=== PATIENT | female | born 1970 ===

== ENCOUNTER 2018-12-28 05:50 | Day surgery (SDC) | payer BC ==
[2018-12-26 09:00] LABS: HEMATOCRIT 41.4 % (36.0-48.0); HEMOGLOBIN 13.3 g/dL (12-16); MCH 24.7 pg (26.0-34.0); MCHC 32.1 g/dL (31.0-37.0); MEAN PLATELET VOLUME 9.6 fL (7.4-10.4); PLATELET COUNT 242 10x3/uL (130-400); RBC 5.38 10x6/uL (4.00-5.40); WBC 6.8 10x3/uL (4.8-10.8)
[2018-12-26 09:09] LABS: CALC OSMOLALITY 281 mosm/kg (275-300); CARBON DIOXIDE 29.2 mmol/L (21.0-32.0); CHLORIDE - SERUM 104 mmol/L (98-107); CREATININE - SERUM 0.4 mg/dL (0.6-1.3); GLUCOSE 98 mg/dL (74-106); POTASSIUM - SERUM 3.3 mmol/L (3.5-5.1); SODIUM 141 mmol/L (136-145); UREA NITROGEN 15 mg/dL (7-18); eGFR NON AFRICAN AMERICAN > 90 mL/min (90-120)
[~2018-12-28 05:50] MED LIST: BAYER CHEWABLE81 MG PO; EZFE 200200 MG PO; LIPITOR40 MG PO; NORVASC5 MG PO; TOPROL XL25 MG PO
[2018-12-28 06:57] VITALS: BP 133/88; BMI 21.5
[2018-12-28] MEDS ORDERED: DURICEF500 MG PO (11:11)
[2018-12-28] MEDS ORDERED: PERCOCET 5-3251 TAB PO (11:11)
--- NOTE | 2018-12-28 14:45 | OP ---
PATIENT NAME: CARIDAD KUMAR MEDICAL RECORD: [id number] :70 LOCATION:[facility] ADMISSION DATE: SURGEON: PARISH SMART DO DATE OF OPERATION: 12/28/2018 PROCEDURE PERFORMED: Left thumb CMC arthroplasty. PREOPERATIVE DIAGNOSIS: Left thumb CMC instability and arthritis. POSTOPERATIVE DIAGNOSIS: Left thumb CMC instability and arthritis. INDICATIONS: Ms. Kumar is a 48-year-old female who has had a left thumb CMC instability and arthritis for quite some time. She had the right thumb fixed at another state and this one had been bothering her. She lost all pinch artificial fly tier and was tired of dealing with that and the instability and she wanted something done. I informed her that we do a suspension arthroplasty of the thumb CMC joint. She is aware of the risks of damage to the radial sensory nerve and need for further surgery, infection and bleeding and she was okay with that and signed the consent. SURGEON: Parish Smart DO DESCRIPTION OF PROCEDURE: The patient was taken to the operative suite after given a block by anesthesia, given 2 grams Ancef preoperatively. The left upper extremity was prepped and draped in a sterile fashion. Timeout was performed. Everyone was in agreement as to the correct side, site, and patient and procedure. The left upper extremity was then exsanguinated with an Esmarch and the tourniquet was inflated to 250 mmHg and was up for 38 minutes. The incision was then marked out over the CMC joint of the thumb on the radial border. Careful dissection was made down then to the CMC joint and opening it up exposing the proximal aspect of the metacarpal of the thumb. Then, an incision was made over the second metacarpal on the dorsal surface. Dissection was made down to the ulnar side of it and a pin was placed from the radial side of the thumb metacarpal to the ulnar side of the second metacarpal and then the rope with the button on it was placed through it. Then, once we got appropriate tension on it, it was tied down and the trapezium was removed and then again the correct tensioning was done under fluoroscopy to get the thumb tensioned right where it needed to be and even with pressure, it did not sublux laterally, just slightly proximally. Once this was in good position and she had good motion passively obviously of the thumb, this was tied down and confirmed on x-ray to be in good position and then the suture was cut and tucked down in between the second and third metacarpals. The tourniquet was then let down and the capsule was closed over the thumb with 2-0 Vicryl in a [id number] fashion and then 4-0 Monocryl in inverted interrupted fashion on the skin. A 5-0 Monocryl ran on the thumb incision on the dorsal skin of the hand over the second metacarpal. A 5-0 nylon was used in a horizontal mattress fashion. This was then dressed with Adaptic, 4 x 4s, Webril, and a thumb spica splint was placed on the patient and secured with a 2-inch Kelvin wrap. She was awakened and taken to recovery in stable condition. Blood loss approximately 50 mL. COMPLICATIONS: None. TRANSINT:[id number] Voice Confirmation ID: [id number] DOCUMENT ID: [id number] OPERATIVE REPORT [id number] CARIDAD KUMAR MICHAEL D, DO at 1445 CC: [id number] DICTATION DATE: 12/28/18 1116 ENGLISH TUTOR: 12/28/18 1225 [facility] [place] 12/28/18 [facility] [address] [place] [address]
== END 2018-12-28 12:55 | disposition home or self-care (01) ==
LOC: D.OPS 05:50 → D.PAN 11:30 → D.OPS 11:30
PROVIDERS: Anesthesiology; ATTEND Orthopaedic Surgery
DX: M25.342 Other instability, left hand (principal); M18.12 Unilateral primary osteoarthritis of first carpometacarpal joint, left hand; Z01.812 Encounter for preprocedural laboratory examination

== ENCOUNTER 2020-12-12 05:58 | Emergency (ER) | payer BC ==
[~2020-12-12] VITALS: Ht 152.4 cm; Wt 48.1 kg
[~2020-12-12 05:58] MED LIST changes: +DURICEF500 MG PO; +PERCOCET 5-3251 TAB PO
[2020-12-12 06:12] VITALS: BP 128/90; Ht 152.4 cm; Wt 48.1 kg
[2020-12-12 06:56] LABS: BASOPHILS 0.1 % (0-2); EOSINOPHILS 2.1 % (0-7); HEMATOCRIT 41.1 % (36.0-48.0); HEMOGLOBIN 13.6 g/dL (12-16); LYMPHOCYTES 17.9 % (15-50); MCH 28.1 pg (26.0-34.0); MCV 85.1 fL (80.0-100.0); MEAN PLATELET VOLUME 8.3 fL (7.4-10.4); MONOCYTES 7.8 % (2-11); NEUTROPHILS 72.1 % (40-80); RBC 4.83 10x6/uL (4.00-5.40); RDW 14.9 % (11.5-14.5); WBC 11.7 10x3/uL (4.8-10.8)
[2020-12-12 06:57] LABS: CALC OSMOLALITY 277 mosm/kg (275-300); CALCIUM 8.8 mg/dL (8.5-10.1); CARBON DIOXIDE 24.8 mmol/L (21.0-32.0); CHLORIDE - SERUM 103 mmol/L (98-107); CREATININE - SERUM 0.5 mg/dL (0.6-1.3); GLUCOSE 118 mg/dL (74-106); POTASSIUM - SERUM 3.5 mmol/L (3.5-5.1); SODIUM 138 mmol/L (136-145); UREA NITROGEN 14 mg/dL (7-18); eGFR NON AFRICAN AMERICAN > 90 mL/min (90-120)
[2020-12-12 07:00] LABS: PLATELET COUNT 294 10x3/uL (130-400)
[2020-12-12 07:05] LABS: ALBUMIN 3.3 g/dL (3.4-5.0); ALKALINE PHOSPHATASE 98 U/L (30-120); ALT (SGPT) 118 U/L (10-68); AMYLASE - SERUM 51 U/L (25-115); BILIRUBIN - TOTAL 0.58 mg/dL (0.2-1.3); LIPASE 132 U/L (73-393); PROTEIN - SERUM 6.9 g/dL (6.4-8.2)
[2020-12-12 07:06] LABS: TROPONIN-I < 0.017 ng/mL (0.000-0.060)
[2020-12-12 07:10] LABS: BILIRUBIN 4+ (NEGATIVE); KETONE NEGATIVE (NEGATIVE); NITRITE POSITIVE (NEGATIVE); UROBILINOGEN 4 mg/dL (< 2)
[2020-12-12 07:11] LABS: BACTERIA FEW HPF (NONE SEEN); SQUAMOUS EPITHELIAL 0-5 HPF (0-4); WHITE CELLS - URINE 0-5 HPF (0-4)
[2020-12-12] MEDS ORDERED: PHENAZOPYRIDIN200 MG PO (08:44)
[2020-12-12] MEDS ORDERED: CEPHALEXIN500 M1 PO (08:44)
[2020-12-12] MEDS ORDERED: MACROBID100 MG PO (08:44)
== END 2020-12-12 10:24 | disposition home or self-care (01) ==
LOC: D.ER 05:58
PROVIDERS: Family Medicine
DX: N39.0 Urinary tract infection, site not specified (principal); R10.9 Unspecified abdominal pain; N30.90 Cystitis, unspecified without hematuria